=== PATIENT | female | born 1990 | race Caucasian/White ===

== ENCOUNTER 2018-07-12 11:34 | Outpatient (CLI) | payer SELFPAY ==
[2018-07-12 12:57] LABS: Iron 53 ug/dL (50-175); Total Iron Binding Capacity 297 ug/dL (250-450); Transferrin Sat 18 % (15-50)
[2018-07-12 13:00] LABS: ALT 30 U/L (12-78); AST 27 U/L (15-37); Albumin 3.8 g/dL (3.4-5.0); Alkaline Phosphatase 102 U/L (46-116); BUN 12 mg/dL (7-18); Bilirubin, Total 0.3 mg/dL (0.2-1.0); CREATININE 0.92 mg/dL (0.55-1.02); Chloride 102 mmol/L (98-107); Glucose 101 mg/dL (70-100); Sodium 138 mmol/L (136-145); Total Protein 7.7 g/dL (6.4-8.2)
== END 2018-07-12 11:54 ==
PROVIDERS: Internal Medicine; PCP Family Medicine
DX: E61.1 Iron deficiency (principal); R53.82 Chronic fatigue, unspecified; R63.8 Other symptoms and signs concerning food and fluid intake
CPT/HCPCS: 36415; 80053; 83540; 83550

== ENCOUNTER 2018-12-24 01:27 | Outpatient (CLI) | payer OTHER, SELFPAY ==
--- NOTE | 2018-12-30 17:22 | HOLTER_ITS ---
DATE OF DICTATION: December 30, 2018 STUDY INDICATION: Palpitations. REQUESTING PROVIDER: Not available. FINDINGS: The patient was monitored for 1 day and 22 hours. Average heart rate 91 bpm, range 65 to 160 bpm. No ectopy. Intermittent nocturnal first-degree AV block and 2:1 second-degree AVblock Mobitz Type 1. No higher degree AV block or critical pauses. No patient events. FINAL INTERPRETATION: No tachyarrhythmias. Intermittent nocturnal first-degree AV block and 2:1 second-degree AV block Mobitz Type 1, most likely due to increased vagal tone.
== END 2018-12-24 01:47 ==
DX: R00.2 Palpitations (principal); I44.0 Atrioventricular block, first degree; I44.1 Atrioventricular block, second degree
CPT/HCPCS: 93225

== ENCOUNTER 2018-12-26 12:35 | Outpatient (CLI) | payer OTHER, SELFPAY | END 2018-12-26 12:55 | DX: R00.2 Palpitations (principal); I44.0 Atrioventricular block, first degree; I44.1 Atrioventricular block, second degree | CPT/HCPCS: 93226 ==

== ENCOUNTER 2019-01-16 07:48 | Emergency (ER) | payer OTHER, SELFPAY ==
[2019-01-16 07:53] VITALS: BP 149/93; PULSE 16; RESP 96; TEMP 36.5; O2SAT 99
--- NOTE | 2019-01-16 08:04 | ED.GENADUL_ITS ---
Discharge Plan Disposition Patient Disposition: HOME Condition: Good Discharge Details Chief Complaint: Orthopedic Clinical Impression: Acute pain of left shoulder, Tingling Primary Care Provider: Jen Jiménez ED Provider: Miky Carrera Home Meds and New Rx's Prescriptions: No Action fluoxetine 40 mg capsule 40 mg PO QAM Qty: 90 RF: 3 Discharge Instructions Instructions: Paresthesia (ED), Shoulder Pain (ED) Additional Instructions: At this time your EKG shows no evidence of heart attack. You show no concerning evidence for a blood clot. And concern your symptoms may be secondary to a mild muscle strain, or spasm. This can sometimes lead to compression and irritation of the nerves. As we discussed he would like to hold off on any further work-up at this time. Throughout the day in the future if you have any return or worsening of your symptoms please return immediately for reassessment. You have any concerns at any time do not hesitate to contact us and speak with 1 of the physicians here in the ED. If you notice any worsening of your symptoms, or any new symptoms such as vomiting, diarrhea, fever, chills, shortness of breath, chest pain, numbness, weakness, or fainting , please return immediately to the emergency department for reevaluation. Please follow up with your primary care provider as soon as possible for reassessment and reevaluation. As always, it was a pleasure participating in your medical care today. Referrals: Jen Jiménez, RENAL DIALYSIS RN [Primary Care Provider] - Medical Decision Making This is a pleasant 28-year-old female with a past medical history of mild anxiety, GERD, who presents today for evaluation of mild left shoulder/scapular pain, and mild paresthesias in the left hand. Patient states that her pain began this morning when she woke up at 630. It is continued throughout the day. It is not exertional, not worsened by movement. No concerning red flags of chest pain shortness of breath pleuritic chest pain history of cardiac disease. His heart she denies any concerning red flags or risk factors for pulmonary embolism. She denies any personal cardiac disease, or first-degree relative with cardiac disease. She did have a Holter monitor recently which was notably unremarkable aside for slight abnormality occurring during sleep only. Physical exam is unremarkable, vital signs are normal and reassuring. Patient is PERC negative. Low risk with Wells score. Heart score is in lowest risk category. EKG is unremarkable. No focal neurologic deficits, normal two-point discrimination, no evidence of sensory deficit. Steeple sign is negative, no worsening of her symptoms with Olivier test. Normal strength. No evidence of focal neurologic deficit. Signs and symptoms appear clinically inconsistent with ACS, PE, dissection, stroke, or concerning life- threatening etiology. Had a long conversation with the patient regarding fur ther work-up with x-rays, blood tests, and observation, at this time weighing the risks and benefits, and discussing the potential for life-threatening etiologies as well as lifelong disability the patient would like to hold off on further work-up at this time. She states that she feels fine, and that her symptoms are notably improved from before. I discussed the importance of follow-up, as well as prompt return for any worsening of her symptoms. Additionally I made it clear that we are always available to talk here in the ED, or that she could come back at any moment for reassessment or completion of the work-up. Patient understands this. This time patient signs and symptoms appear clinically consistent with mild musculoskeletal strain causing her symptomatology. I have extensively reviewed the treatment plan and discharge instructions with the patient. I have addressed all patient concerns at this time. The patient was made aware of what symptoms to monitor for that would warrant a return to the emergency department. Discussed the plan with the patient, they demonstrate verbal understanding and agreement with our assessment and plan at this time. EKG 805 Rate 82, intervals normal, sinus rhythm, RSR in V1 V2, no significant ST elevations or depressions, no Q waves. No evidence of STEMI. No evidence of Brugada, WPW, or epsilon wave. FINAL INTERPRETATION: No tachyarrhythmias. Intermittent nocturnal first-degree AV block and 2:1 second-degree AV block Mobitz Type 1, most likely due to increased vagal tone. HPI General Date/Time Provider Initiated Documentation: 01/16/19 08:02 . HPI Narrative: This is a pleasant 28-year-old female with no significant past medical history who presents today for evaluation of mild achiness in her left shoulder and tingling in her left hand. She states that symptoms were present when she woke up at 630 this morning. They have continued throughout the day. Not worsened with exertion or activity. Not improved by anything except for time. She describes the pain as being present in the left shoulder blade itself, notably mild, aching in nature. No tearing sensation ripping sensation no chest pain, chest heaviness, pleuritic chest pain, bandlike sensation around the chest. She also does have some associated mild numbness-like sensation in her left arm from the forearm to the hand. It is present on the lateral aspect of the forearm and the palmar aspect of the hand including all fingers. She states that it is slowly improved throughout the morning and is much better now than before. She otherwise denies any aggravating or modifying factors. She denies any recent trauma or additional work or effort. She denies any cough, hemoptysis, change in medications. Denies PE risk factors such as recent long car rides, immobilization, recent surgery, prior history of DVT or PE, family history of PE or DVT, morbid obesity, exogenous estrogen and smoking, hemoptysis, history of cancer. She denies any first-degree family history of cardiac disease. Her grandfather did have a heart attack, but no first-degree relatives. Of note she did recently have an outpatient Holter monitor which was relatively benign, report included. No other complaints at this time. No other modifying factors. Related Data Home Medications Medication Instructions Recorded Confirmed fluoxetine 40 mg capsule 40 mg PO QAM #90 cap 12/17/18 01/16/19 Previous Rx's Medication Instructions Recorded fluoxetine 40 mg capsule 40 mg PO QAM #90 cap 12/17/18 Allergies Allergy/AdvReac Type Severity Reaction Status Date / Time bupropion HCl AdvReac Agitation Verified 01/16/19 07:58 [From Wellbutrin] General Stated Complaint: Orthopedic CLARISSA: 4 Review of Systems Review of Systems ROS Unobtainable: All systems reviewed & are unremarkable except as noted in HPI and below PFS Social History Smoking/Tobacco Use Status: Never Second Hand Exposure: No Alcohol Intake: current Alcohol Intake frequency: holidays/special occasions only Alcohol type: beer and wine Drug use: Never Substance use type: does not use Caregiver/Support person: No Household members: spouse and children Housing: house Communication Needs: None Do you need help understanding health information?: Never Pets and animals: Yes Pets and animals: cat(s) and dog(s) Sexually active: Yes Do you think of yourself as: straight/heterosexual Current gender identity: female What is your relationship status?: How often do you talk on the phone with friends or family?: never How often do you get together with friends or relatives?: never How often do you attend jewish or oriental orthodox services?: decline to answer Do you belong to any clubs or organized social groups?: no Panel score (0-1 are the most socially isolated patients): 1 What type of physical activity do you participate in: decline to answer Duration: decline to answer Frequency: decline to answer [place]/Zoroastrian: Quaker Special [place] needs: No Seatbelt use: always 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 3.ENT: Atraumatic external nose and ears. Moist MM. Neck: Symmetric, trachea midline, No thyromegaly. 4.CVS: +S1/S2, No murmurs or gallops. Peripheral pulses 2+ and equal in all extremities. Brisk capillary refill in all extremities. 5.RESP: Unlabored respiratory effort. Clear to auscultation bilaterally. No wheezes rales or rhonchi 6.GI: Soft, Nontender/Nondistended, No hepatosplenomegaly. No guarding or rebound. 7.MSK: Normocephalic/Atraumatic, Extremities w/o deformity or ttp No cyanosis or clubbing, Normal movement of all extremities. Movement of the left shoulder demonstrates mild subjective pain on the left scapula at the inferior component, not significantly worse with movement. No significant pain with internal or external rotation of the shoulder both actively and passively. Normal strength throughout. No calf tenderness. Left hand: Symmetrically palpable radial and ulnar pulses. Capillary refill less than 2 seconds to all digits. Intact sensation to light touch of the radial, median and ulnar nerves demonstrated by testing in the dorsal web space of the thumb, the distal palmar aspect of the index finger, and the lateral surface of the fifth finger. 2 point discrimination intact to 5mm (up to 6mm can be normal in digits 3-5) of discrimination in the affected digits. Intact motor function of the radial, median and ulnar nerves demonstrated by strength of extension of the isolated distal joint of the index finger, hand community marketing manager, and spreading of the 2nd through 5th digits. Intact recurrent median nerve as demonstrated by ability to move thumb fully through opposition, abduction and flexion. No snuffbox tenderness. 8.Skin: Warm, Dry. No rashes or lesions. 9.Neuro: clinical applications manager II-XII grossly intact. Sensation grossly intact, no focal neurologic deficits. All 6 cardinal planes of vision are fully intact. No evidence of rotatory or vertical nystagmus. The patient demonstrated a normal [id number]-[id number], good dexterity. There was no evidence of dysdiadochokinesia. Patient was able to ambulate without difficulty. There was no wide-based gait. Romberg, and [id number]-[id number] are both normal on testing. Sensation was intact bilaterally as well as muscle strength bilaterally for all extremities. Patient was able to verbalize butter cup with no slurring, or miss pronunciation. CN 2-12 tested and intact, patient is able to hold bilateral arms up for 5 seconds and there is no pronator drift, patient also holds legs up for 10 seconds bilaterally without any drop, sensation intact to light touch in hands and feet bilaterally. Cerebellar exam normal as tested by [id number], [id number], rapid alternating movements, fine finger movements. Visual downs intact peripherally. Normal speech pattern and verbal understanding. 10.Psych: (AAO) x3. Appropriate mood and affect Course Vital Signs Vital signs: Vital Signs Temperature 36.5 C 01/16/19 07:53 Pulse 16 L 01/16/19 07:53 Respiratory Rate 96 H 01/16/19 07:53 Blood Pressure 149/93 H 01/16/19 07:53 Pulse Oximetry 99 01/16/19 07:53 Temperature 36.5 C 01/16/19 07:53 Temperature Source Skin 01/16/19 07:53 Pulse 16 L 01/16/19 07:53 Respiratory Rate 96 H 01/16/19 07:53 Respiratory Effort Short of Breath 01/16/19 07:53 Blood Pressure 149/93 H 01/16/19 07:53 Blood Pressure Position Sitting 01/16/19 07:53 Pulse Oximetry 99 01/16/19 07:53 Oxygen Delivery Method Room Air 01/16/19 07:53 Oxygen Flow Rate 0 01/16/19 07:53 Pain Level 5 01/16/19 07:58
== END 2019-01-16 08:24 | disposition home or self-care (01) ==
PROVIDERS: Emergency Provider Student in an Organized Health Care Education/Training Program; PCP Nurse Practitioner
DX: M25.512 Pain in left shoulder (principal); R20.2 Paresthesia of skin; I44.1 Atrioventricular block, second degree; I44.0 Atrioventricular block, first degree; Z53.29 Procedure and treatment not carried out because of patient's decision for other reasons
CPT/HCPCS: 93005; 99283; 93010

== ENCOUNTER 2019-03-31 07:18 | Emergency (ER) | payer OTHER, SELFPAY | END 2019-03-31 07:34 | LOC: ER 08:13 | PROVIDERS: Emergency Provider Emergency Medicine | DX: J02.9 Acute pharyngitis, unspecified (principal) | CPT/HCPCS: 87880; 99282 ==

== ENCOUNTER 2019-10-16 18:32 | Emergency (ER) | payer OTHER, SELFPAY ==
[2019-10-16 18:37] VITALS: BP 133/80; PULSE 85; RESP 16; TEMP 36.7; O2SAT 99
--- NOTE | 2019-10-16 18:42 | W.ED.GENAD ---
Discharge Plan Disposition Patient Disposition: HOME Condition: Good Discharge Details Chief Complaint: Abd Prob Clinical Impression: UTI (urinary tract infection) Primary Care Provider: Unknown,Unknown ED Provider: Miky Carrera Home Meds and New Rx's Prescriptions: New cephalexin [Keflex] 500 mg capsule 500 mg PO Q12H 4 Days Qty: 8 RF: 0 Discharge Instructions Instructions: Urinary Tract Infection in Women (ED) Additional Instructions: You have a mild urinary tract infection. Please take antibiotic as directed. Please drink plenty of water, 10 to 12 cups/day, as well as cranberry juice or cranberry juice supplements. If you notice any worsening of your symptoms, or any new symptoms such as vomiting, diarrhea, fever, chills, shortness of breath, chest pain, numbness, weakness, or fainting , please return immediately to the emergency department for reevaluation. Please follow up with your primary care provider as soon as possible for reassessment and reevaluation. As always, it was a pleasure participating in your medical care today. Medical Decision Making 28-year-old female with a past medical history of GERD, elevated BMI, previous surgically mediated umbilical hernia presents today for evaluation of left flank pain. Patient states that starting this morning she has had mild achiness on her left flank/abdominal area. The area is in the upper flank region, she denies any pelvic pain or tenderness, she denies any vaginal discharge or urinary complaints. She denies any vomiting or diarrhea but does admit to mild nausea. She denies any hematuria, fever, chills, numbness tingling or weakness. She denies any other complaints at this time. No modifying factors. She has not taken any Tylenol or Motrin today. Patient's physical exam demonstrates no reproducible tenderness in the abdomen, no flank or CVA tenderness, no pain at McBurney's point, no pelvic tenderness whatsoever, negative obturator and psoas sign. Differential includes urinary tract infection, less likely kidney stone, notably less likely diverticulitis as her symptoms appearing consistent with this at this time. Pelvic pathology seems unlikely as the pain is in the higher left flank rather than the pelvic region. At this time we will get a urinalysis to evaluate for signs of infection as a cause of her symptoms, hold off on any additional labs or imaging otherwise with her notably unremarkable abdominal exam with no signs of an acute surgical abdomen whatsoever. Will give Toradol and Tylenol. 7:20 PM Patient's urinalysis has returned positive for leukocyte Estrace, and greater than 50 WBCs. No RBCs. No other abnormalities. Patient has complete resolution of her symptoms after Toradol and Tylenol. She is feeling much better. Signs and symptoms appear clinically consistent with urinary tract infection. I did again discuss options of repeat labs and imaging patient would like to hold off at this time. As her symptoms show no evidence of acute surgical abdomen patient will be discharged home, signs and symptoms at this time clinically consistent with urinary tract infection. Will give Keflex to go here, as well as prescription for home use 500 twice daily. I have extensively reviewed the treatment plan and discharge instructions with the patient. I have addressed all patient concerns at this time. The patient was made aware of what symptoms to monitor for that would warrant a return to the emergency department. Discussed the plan with the patient, they demonstrate verbal understanding and agreement with our assessment and plan at this time. HPI General Date/Time Provider Initiated Documentation: 10/16/19 18:33. HPI Narrative: 28-year-old female with a past medical history of GERD, elevated BMI, previous surgically mediated umbilical hernia presents today for evaluation of left flank pain. Patient states that starting this morning she has had mild achiness on her left flank/abdominal area. The area is in the upper flank region, she denies any pelvic pain or tenderness, she denies any vaginal discharge or urinary complaints. She denies any vomiting or diarrhea but does admit to mild nausea. She denies any hematuria, fever, chills, numbness tingling or weakness. She denies any other complaints at this time. No modifying factors. She has not taken any Tylenol or Motrin today. Related Data Home Medications Medication Instructions Recorded Confirmed cephalexin [Keflex] 500 mg PO Q12H 4 Days #8 cap 10/16/19 Previous Rx's Medication Instructions Recorded cephalexin [Keflex] 500 mg PO Q12H 4 Days #8 cap 10/16/19 Allergies Allergy/AdvReac Type Severity Reaction Status Date / Time bupropion HCl AdvReac Agitation Verified 10/16/19 18:45 [From Wellbutrin] General CLARISSA: 4 Review of Systems All systems reviewed & are unremarkable except as noted in HPI and below PFSH Medical History Abdominal pain generalized discomfort as pre-teen. Neg w/u. Onset 02/2013 RUQ after + UPT. 05/19/13 CMP and RUQ u/s pending. Anxiety (Chronic) Anxiety Chronic fatigue (Chronic) Depression (Acute 07/07/15) GERD (gastroesophageal reflux disease) (Chronic) Gestational diabetes (Resolved) Increased body mass index (BMI) (Chronic) Left hip pain (Resolved 11/01/16) Post-term , 40-42 weeks of gestation (Resolved) examination or test, positive result (Resolved 08/21/14) Supervision of other normal (Resolved 09/09/14) Umbilical hernia without obstruction and without gangrene (Resolved 06/29/17) Surgical History Endoscopy 11yo. Neg findings Repair of umbilical hernia (08/23/17) Family History Maternal Grandmother Lung cancer Thyroid cancer Stomach cancer Depression Heart disease Aunt No problems noted. Father Fatty liver Mother Depression Asthma Sister Depression Asthma Sister No problems noted. Son No problems noted. Daughter No problems noted. Paternal Grandfather Alcohol abuse Asthma Heart disease Stroke Paternal Grandfather Diabetes Heart disease Hyperlipidemia Hypertension Paternal Grandmother No problems noted. Social History Smoking/Tobacco Use Status: Never Second Hand Exposure: No Alcohol Intake: current Alcohol Intake frequency: holidays/special occasions only Alcohol type: beer and wine Drug use: Never Substance use type: does not use Caregiver/Support person: No Household members: spouse and children Housing: house Communication Needs: None Do you need help understanding health information?: Never Pets and animals: Yes Pets and animals: cat(s) and dog(s) Sexually active: Yes Do you think of yourself as: straight/heterosexual Current gender identity: female What is your relationship status?: How often do you talk on the phone with friends or family?: never How often do you get together with friends or relatives?: never How often do you attend latter-day or bahai services?: decline to answer Do you belong to any clubs or organized social groups?: no Panel score (0-1 are the most socially isolated patients): 1 What type of physical activity do you participate in: decline to answer Duration: decline to answer Frequency: decline to answer [place]/Shinto: Lutheran Special [place] needs: No Seatbelt use: always Drive intox or ride w/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 3.ENT: Atraumatic external nose and ears. Moist MM. Neck: Symmetric, trachea midline, No thyromegaly. 4.CVS: +S1/S2, No murmurs or gallops. Peripheral pulses 2+ and equal in all extremities. Brisk capillary refill in all extremities. 5.RESP: Unlabored respiratory effort. Clear to auscultation bilaterally. No wheezes rales or rhonchi 6.GI: Soft, Nontender/Nondistended, No hepatosplenomegaly. No guarding or rebound. No flank or CVA tenderness. Negative obturator and psoas sign. No pain at McBurney's point, negative Ayers sign. No left lower quadrant tenderness on palpation. No pelvic or suprapubic tenderness. 7.MSK: Normocephalic/Atraumatic, Extremities w/o deformity or ttp No cyanosis or clubbing, Normal movement of all extremities 8.Skin: Warm, Dry. No rashes or lesions. 9.Neuro: banquet cook II-XII grossly intact. Sensation grossly intact, no focal neurologic deficits. 10.Psych: (AAO) x3. Appropriate mood and affect
[2019-10-16] MEDS: Acetaminophen 500 MG TAB 1000 MG PO (18:56)
[2019-10-16] MEDS: Ketorolac 30 MG/ML VIAL IM (18:58)
[2019-10-16 19:04] LABS: Bilirubin Negative (Negative); Blood Negative (Negative); Clarity Cloudy (Clear); Glucose Negative (Negative); Ketones Negative (Negative); Leukocyte Esterase Trace (Negative); Nitrite Negative (Negative); Specific Gravity 1.025 (1.005-1.025); Urobilinogen 0.2 EU/dL (Up TO 0.2)
[2019-10-16] MEDS: Ondansetron O.D.T. 4 MG TABEF PO (19:07)
[2019-10-16 19:17] LABS: Bacteria Moderate HPF (Negative); C & S Indicated? No/Sq. Contamination; Casts Negative LPF (Negative); Crystals Negative HPF (Negative); Epithelial Cells Many HPF (Negative); Mucus Negative (Negative); WBC >50 HPF (0-5)
[2019-10-16] MEDS: Cephalexin 500 MG CAP, 4 CAPS/BTL PO (19:32)
== END 2019-10-16 19:30 | disposition home or self-care (01) ==
PROVIDERS: Emergency Provider Student in an Organized Health Care Education/Training Program; PCP Nurse Practitioner Family
DX: N39.0 Urinary tract infection, site not specified (principal); R11.0 Nausea
CPT/HCPCS: 81025; 96372; 99284; 81003; 81015; J1885

== ENCOUNTER 2020-08-17 17:14 | Outpatient (REF) | payer OTHER, SELFPAY ==
--- NOTE | 2020-08-17 16:15 | PAPFT_PTH ---
PATIENT: Alda Luther LOC: [facility] U#:[id number] AGE/SX: 29/F ROOM: RE08/17/[address]: Lucina Andrews : 1990 BED: DIS: 08/17/2020 SPEC #: [id number] RECD: 08/18/20 12:49 STATUS: DEJON REPablo #: [id number] ESTHER: 08/17/20 16:[address]: Lucina Andrews DEPT: [facility] Cytology RECD BY: Vero Leigh Tissues: 1 - CX/ENDOCX FOR PAP SMEARS Procedures: PAP THIN PREP/UVM Screening Comments: [id number] (CHLAMYDIA/GC)
[2020-08-19 15:09] LABS: Chlamydia Result Negative (Negative); GC Result Negative (Negative)
== END 2020-08-17 17:15 | disposition home or self-care (01) ==
LOC: NCHCN 17:14
PROVIDERS: PCP Nurse Practitioner Family; Visit Provider Nurse Practitioner Family
DX: Z11.3 Encounter for screening for infections with a predominantly sexual mode of transmission (principal); Z12.4 Encounter for screening for malignant neoplasm of cervix; Z00.00 Encounter for general adult medical examination without abnormal findings
CPT/HCPCS: 87491; 87591; 88142

== ENCOUNTER 2020-08-19 02:14 | Outpatient (CLI) | payer OTHER, SELFPAY ==
[2020-08-19 12:56] LABS: TSH (W/Ref FT4) 1.51 uIU/mL (0.36-3.74)
== END 2020-08-19 02:15 | disposition home or self-care (01) ==
LOC: LBO 02:14
PROVIDERS: PCP Nurse Practitioner Family; Visit Provider Nurse Practitioner Family
DX: E66.9 Obesity, unspecified (principal)
CPT/HCPCS: 36415; 84443

== ENCOUNTER 2020-09-06 03:36 | Outpatient (RCR) | payer OTHER, SELFPAY ==
--- NOTE | 2020-09-06 08:15 | HOLTER_ITS ---
APPROVED REPORT Conclusion This is a 24-hour monitor ordered for indication of arrhythmias. The patient was in normal sinus rhythm with majority recording with an average heart of 66 bpm. There were 7 total PVCs. There was no other significant ectopy or arrhythmia There is no evidence of atrial fibrillation no pauses grade 3 seconds and no evidence of high degree heart block. There were no patient triggered events.
== END 2020-09-20 23:59 | disposition home or self-care (01) ==
LOC: RT 03:36
PROVIDERS: PCP Nurse Practitioner Family; Visit Provider Nurse Practitioner Family
DX: I49.8 Other specified cardiac arrhythmias (principal); I49.3 Ventricular premature depolarization
CPT/HCPCS: 93225; 93226

== ENCOUNTER 2021-08-15 04:40 | Outpatient (CLI) | payer OTHER, SELFPAY ==
[2021-08-15 11:26] LABS: Source Nasal/Nares
[2021-08-15 14:49] LABS: HCT 38.4 % (36.0-46.0); HGB 12.1 g/dL (11.2-15.7); MCH 27.9 pg (27.0-33.0); MCHC 31.5 % (32.0-36.0); MCV 88.5 fL (80-95); MPV 9.1 fL (8.0-11.0); Platelet Count 360 10^3/uL (130-400); RBC 4.34 10^6/uL (3.93-5.22); RDW 12.7 % (11.7-14.6); RDW-SD 41.3 fL; WBC 11.33 10^3/uL (4.4-10.8)
[2021-08-15 15:52] LABS: HCG Qual (Serum) Negative
[2021-08-15 15:59] LABS: BUN 13 mg/dL (7-18); CREATININE 0.9 mg/dL (0.55-1.02); Calcium 8.4 mg/dL (8.5-10.1); Chloride 103 mmol/L (98-107); Glucose 109 mg/dL (74-106); Potassium 4.2 mmol/L (3.5-5.1); Sodium 136 mmol/L (136-145)
[2021-08-15 16:42] LABS: COVID-19 PCR Negative (Negative)
== END 2021-08-15 04:41 | disposition home or self-care (01) ==
LOC: LBO 04:41
PROVIDERS: PCP Nurse Practitioner Family; Visit Provider Obstetrics & Gynecology Gynecology
DX: N94.6 Dysmenorrhea, unspecified; N92.0 Excessive and frequent menstruation with regular cycle; Z20.822 Contact with and (suspected) exposure to COVID-19; Z01.818 Encounter for other preprocedural examination; Z01.812 Encounter for preprocedural laboratory examination
CPT/HCPCS: 36415; 80048; 85027; 86850; 86900; 86901; 87635; 84703

== ENCOUNTER 2021-08-15 05:10 | Outpatient (CLI) | payer OTHER, SELFPAY | END 2021-08-15 05:11 | disposition home or self-care (01) | LOC: LBO 05:10 | PROVIDERS: PCP Nurse Practitioner Family; Visit Provider Obstetrics & Gynecology Gynecology ==

== ENCOUNTER 2021-08-15 09:01 | Outpatient (CLI) | payer OTHER, SELFPAY | END 2021-08-15 09:02 | disposition home or self-care (01) | LOC: LBO 09:02 | PROVIDERS: PCP Nurse Practitioner Family; Visit Provider Obstetrics & Gynecology Gynecology ==

== ENCOUNTER 2021-08-18 16:13 | Observation (INO) | payer OTHER, SELFPAY ==
[2021-08-18] VITALS (8 sets, daily range): BP systolic 98–160; BP diastolic 52–90; PULSE 59–79; RESP 13–18; TEMP 36.4–36.7; O2SAT 96–100; BMI 41.1
[2021-08-18] MEDS: Lactated Ringers 1,000 ML 125 ML IV ×4 (09:11→22:49)
--- NOTE | 2021-08-18 10:00 | W.ANESPRE ---
General Info Date of Service Date Performed: 08/18/21 Height: 5 ft 5 in Weight: 112.264 kg Body Mass Index (BMI): 41.1 Surgical Procedure: Operation Date: 08/18/21 11:10 Proposed Procedure Side Surgeon p Hysterectomy Vaginal Laparoscopic Assist, Bladder Cystoscopy Rubina Lamb MD Meds Allergies and Home Medications Allergies Allergy/AdvReac Type Severity Reaction Status Date / Time shellfish derived Allergy rash Unverified 08/18/21 08:52 bupropion HCl AdvReac Agitation Verified 08/18/21 08:52 [From Wellbutrin] Home Medication Medication Instructions Recorded sertraline 25 mg tablet 50 mg PO DAILY tab 08/15/21 omeprazole magnesium 20 mg 20 mg PO DAILY 08/17/21 tablet,delayed release (Prilosec OTC) Current Visit Medications: Current Medications Generic Name Dose Route Start Last Admin Trade Name Freq PRN Reason Stop Dose Admin Ringer's Solution 1,000 mls @ 125 mls/hr 08/18/21 06:00 08/18/21 09:11 IV 09/16/21 23:59 125 mls/hr INFUSION MARCUS Administration Cefazolin Sodium/Dextrose 2 gm in 50 mls @ 100 mls/hr 08/18/21 06:00 Ancef Duplex IVPB 08/18/21 16:00 PREOP MARCUS IV Miscellaneous Supplies 1 each 08/18/21 06:00 Iv Access IV 09/16/21 23:59 DIRECTED MARCUS Sodium Chloride 0 ml 08/18/21 06:00 Normal Saline Flush 10 Ml Syr IV 09/16/21 23:59 PRN PRN Sodium Chloride 0 ml 08/18/21 06:00 Normal Saline 10 Ml Vial IJ 09/16/21 23:59 DIRECTED PRN Sterile Water 0 ml 08/18/21 06:00 Water,Injection,Sterile 10 Ml Vial IJ 09/16/21 23:59 DIRECTED PRN PFSH Active Problems Active Problems: Problem Status Onset Code Preop examination Z01.818 Encounter for IUD removal Z30.432 Encounter for counseling regarding contraception Z30.09 IUD check up Z30.431 Encounter for IUD insertion Z30.430 Dysmenorrhea N94.6 Menorrhagia with regular cycle N92.0 Irregular heart beat I49.9 Abdominal pain 05/27/12 R10.9 History of endoscopy Z98.890 Umbilical hernia without obstruction and without gangrene 06/29/17 K42.9 Increased body mass index (BMI) R63.8 GERD (gastroesophageal reflux disease) K21.9 Chronic fatigue R53.82 Left hip pain 11/01/16 M25.552 Depression 07/07/15 F32.9 Anxiety F41.9 Medical History Medical History Abdominal pain generalized discomfort as pre-teen. Neg w/u. Onset 02/2013 RUQ after + UPT. 05/19/13 CMP and RUQ u/s pending. Anxiety Surgical History Surgical History Endoscopy 11yo. Neg findings Repair of umbilical hernia (08/23/17) Tobacco Smoking/Tobacco Use Status: Never Second hand exposure: No Alcohol Alcohol Intake: current Alcohol intake frequency: holidays/special occasions only Alcohol type: beer and wine Substance Use Substance use: Never Substance use type: does not use Prental History History 2 Para 2 Hx # Term Pregnancies 2 Multiple births Hx # Pregnancies Ectopic pregnancies AB induced Hx Number of Living Children 2 AB spontaneous Vital Signs and Lab Results Vital Signs Most Recent Vital Signs in EMR: Most Recent Vital Signs Temp Pulse Resp BP Pulse Ox 36.7 C 78 16 160/90 H 100 08/18/21 08:48 08/18/21 08:48 08/18/21 08:48 08/18/21 08:48 08/18/21 08:48 Point of Care Results Point of Care Results: POC- Test(urine) Negative 08/18/21 09:18 Lab Results Blood Type / Crossmatch: Patient ABO/Rh O Negative 08/15/21 Antibody Screen NEGATIVE 08/15/21 Complete Blood Count: White Blood Count 11.33 10^3/uL (4.4-10.8) H 08/15/21 14:30 08/15/21 Red Blood Count 4.34 10^6/uL (3.93-5.22) 08/15/21 14:30 08/15/21 Hemoglobin 12.1 g/dL (11.2-15.7) 08/15/21 14:30 08/15/21 Hematocrit 38.4 % (36.0-46.0) 08/15/21 14:30 08/15/21 Platelet Count 360 10^3/uL (130-400) 08/15/21 14:30 08/15/21 Complete Metabolic Panel: Sodium Level 136 mmol/L (136-145) 08/15/21 14:30 08/15/21 Potassium Level 4.2 mmol/L (3.5-5.1) 08/15/21 14:30 08/15/21 Chloride Level 103 mmol/L (98-107) 08/15/21 14:30 08/15/21 Carbon Dioxide Level 24.0 mmol/L (21.0-32.0) 08/15/21 14:30 08/15/21 Blood Urea Nitrogen 13 mg/dL (7-18) 08/15/21 14:30 08/15/21 Creatinine 0.9 mg/dL (0.55-1.02) 08/15/21 14:30 08/15/21 Estimated GFR/1.73 m2 >= 60.00 (mL/min/1.73m2) 08/15/21 14:30 08/15/21 Calcium Level 8.4 mg/dL (8.5-10.1) L 08/15/21 14:30 08/15/21 Glucose Level 109 mg/dL (74-106) H 08/15/21 14:30 08/15/21 Liver Function Panel: No Data to Display Coagulation Panel: No Data to Display Cardiac Panel: No Data to Display Arterial Blood Gas: No Data to Display Venous Blood Gas: No Data to Display Pancreas Panel: No Data to Display Thyroid Panel: No Data to Display Infectious Disease: Coronavirus (COVID-19)(PCR) Negative (Negative) 08/15/21 09:00 08/15/21 Coronavirus 2019 Source Nasal/Nares 08/15/21 09:00 08/15/21 Blood Cultures: No Data to Display Toxicology Panel: No Data to Display Panel: Serum HCG, Qualitative Negative 08/15/21 14:30 08/15/21 Anesthesia Assessment and Plan Anesthesia History Personal History: No History of Anesthesia Complications Family History: No Family History of Anesthesia Complications Exercise Tolerance Exercise Tolerance: Metabolic Equivalents>4 Pertinent Negatives Pertinent Negatives: No Symptoms of GERD Cardiac & Pulmonary Exam Cardiac Exam: Normal S1/S2 Heart Sounds Pulmonary Exam: Clear Bilateral Breath Sounds Implantable Cardiac Device Does patient have a Pacemaker or an ICD?: No Airway Exam Known Difficult Airway: No Mallampati Class: 2 Mouth Opening: Normal (> 3cm) Thyromental Distance: Greater than 3 cm Neck Range of Motion: Full ROM Neck Circumference: Normal Teeth Condition: Normal Dentition ASA Classification ASA Score: ASA 3 Emergency Case?: No NPO Status NPO Status: NPO Clears >2 hours, Solids >8 hours Status Status: Negative HCG Anesthesia Plan Resuscitation Status: Full Code Anesthesia Technique: General Anesthesia Airway Planned: Endotracheal Tube Pain Management: Intrathecal Analgesia Monitors Used: Standard Monitors
[2021-08-18] MEDS: ceFAZolin 2 GM/50 ML BAG IVPB (11:10)
[2021-08-18] MEDS: Bupivacaine 0.25% Pres-Free 30 ML VIAL (11:53)
--- NOTE | 2021-08-18 13:48 | UTER_PTH ---
PATIENT: Alda Luther LOC: U#:[id number] AGE/SX: 30/F ROOM: RE08/18/[address]: Rubina Lamb : 1990 BED: A DIS: 08/19/2021 SPEC #: [id number] RECD: 08/18/21 17:08 STATUS: DEJON RE #: [id number] ESTHER: 08/18/21 13:[address]: Rubina Lamb DEPT: Surgical Specimen RECD BY: Vero Leigh ENTERED: 08/18/21 17:09 SP TYPE: UTER OTHR DR: Lucina Andrews Tissues: 1 - UTERUS W OR W/O OVARIES(NOT TUMOR/PROLAPSE) Procedures: GROSS AND MICRO LEVEL 5 Comments: [id number]
[2021-08-18] MEDS: Lidocaine 1% Multi-Dose W/EPI 1/100,000 50 ML VIAL (14:38)
[2021-08-18] MEDS: Cellulose,Oxidized 4X8 1 PACKET MC (15:27)
--- NOTE | 2021-08-18 16:30 | ROE_ITS ---
Date of service: 08/18/21 Time of Service: 17:11 Operative Note Operative Note DATE OF PROCEDURE: 08/18/21 PRE-OP DIAGNOSIS: Dysmenorrhea, pelvic pain PROCEDURE: Laparoscopic-assisted vaginal hysterectomy with bilateral salpingectomy and bladder cystoscopy SURGEON: Rubina Lamb ASSISTING SURGEON: Sindy Kwan Refer to Anesthesia Record ESTIMATED BLOOD LOSS: 500 PATHOLOGY: other (Uterus cervix bilateral fallopian tubes to pathology) COMPLICATIONS: None Patient was transported to: PACU Patient's condition: stable Indications: Patient is a 30-year-old female? with a history of abnormal uterine bleeding and pelvic pain not responsive to Levonorgestrel IUD or NSAIDs.Previous imaging studies of pelvis were unremarkable Pt decided against OCPs and requested definitive Rx Findings: Uterus small, mobile. L fallopian tube with paratubal cyst. R and L ovaries nl. Normal upper abdomen. Procedure Description: Patient was taken to the operating room where she was placed in sitting position and spinal anesthesia administered without difficulty. She was then placed in the dorsal supine position and general endotracheal anesthesia was administered. She was then placed in the dorsal lithotomy position in [facility] stirrups with SCDs in place. After being prepped and draped in the usual sterile fashion a surgical timeout was performed. Elizabeth catheter was placed to gravity drainage. A bivalve speculum was placed in the vagina the anterior lip of the cervix was grasped with a single-tooth tenaculum. A uterine manipulator was successfully inserted into the uterine cavity, the catheter bulb inflated with normal saline and the device left in place. Attention was then turned to the patient's abdomen. She received 2 g of Ancef on arrival in the OR. The umbilical fold was infiltrated with quarter percent Marcaine without epinephrine. A scalpel was then used to make a 12mm vertical skin incision in the umbilical fold. Two penetrating towel clips were used to tent up the skin and through the periumbilical incision and a Veres needle was introduced into the abdomen with carbon dioxide as the distention medium. Intra-abdominal placement was confirmed by a drop in the intra-abdominal pressure. Once a pneumoperitoneum was established placement of a 12 mm Visiport was attemped under direct visualization. However her pannus prevented entry in to abdomen. Instead the subcutaneous tissue was dissected to the level of the rectus fascia which was then grasped with two Kocker clamps, tented up and incised with a Cage scissors with entry into the abdominal cavity. The 12mm trochar and sleeve were then placed without difficulty. The rectus fascia was taged with 2 sutures of 0- Vicryl. Patient was then placed in Trendelenburg position. Two sites approximately 6 cm diagonally from the umbilical incision the skin were infiltrated with 1cc of 0.25% Marcaine without epinephrine, incised with a scalpel and two 5 mm lower ports were placed under direct visualization. Inspection of the right and left pelvic side wall did not demonstrate the course ureters in relation to the right and left adnexa. After careful inspection of the pelvis a LigaSure electrocautery device was used to clamp, cauterize and transect the left mesosalpinx to the left uterine cornua. Left ovarian ligament was then clamped, cauterized and transected from its attachment to the body of the uterus. The left round ligament and broad ligament were then clamped, cauterized and transected to the level of the lower uterine segment. The vesico-uterine peritoneum was incised and the the from the lower uterine segment and mobilized off of the body of the cervix. The pedicles of the suspensory, round and broad ligaments were inspected and noted to be hemostatic. On the contralateral side the right mesosalpinx, ovarian ligament, round, and right broad ligament were sequentially clamped, cauterized and transected using the Ligasure device to the level of the insertion of the uterine artery. The remaining the vesicouterine peritoneum was incised across the lower uterine segment and the bladder flap created using the Ligasure device and gently counter traction. All pedicles were inspected and noted to be hemostatic. Decision was made to proceed with the vaginal portion of the case. Laparoscopic instruments were removed from the ports , the pneumoperitoneum was reduced, and the was abdomen covered with sterile drape. A weighted vaginal speculum was placed in the vagina and the body of the cervix was infiltrated with 1% Lidocaine with a dilute solution of Epinephrine in a circumferential fashion. The anterior and posterior lips of the cervix were grasped with Maico clamps. A circumferential incision of the cervical epithelium was made with a Bovie electrocautery. The posterior cul-de-sac was entered sharply and through the this incision a long billed weighted speculum was placed. The left and right uterosacral ligament complexes were identified clamped, transected and suture- ligated and the suture held long. The vesico-cervical fascia was identified and the anterior cul-de-sac bluntly sharply. Through this incision a curved right angled retractor was inserted and used to retract the bladder away from the operative field. The remaining right and left broad ligament attatchments were sequentially clamped, cauterized, and transected and the specimen was passed off of the operative field. The vaginal cuff was inspected and there was bleeding from the left broad ligament pedicle. It was clamped and suture ligated with hemostasis achieved. The vaginal cuff was reapproximated in a vertical fashion with an interupted napoles ture of 0 Vicryl. Instruments removed from the vagina and attention was again turned to the abdomen where a pneumoperitoneum was reestablished and the pelvis inspected using the laparoscope. The vaginal cuff was intact. Bleeding was noted from the left side of the vaginal cuff. Two small branches of the left uterine vasculature were located and noted to be bleeding. Hemostasis was acheived using 5mm vascular clips and electrocauter. Once the area was determined to be hemostatic Surgicel was draped over the vaginal cuff and left uterine vessel pedicles. The instruments were removed from the port sites, the pneumoperitoneum reduced and the ports removed under direct visualization. The fascia of the periumbilical skin incision was closed with interrupted suture of 0 Vicryl. The skin of all port site incisions were reapproximated with a subcuticular closure of 3-0 Monocryl and and covered with skin glue. At the 4 hour interval in the case the 2gms of Ancef was redosed. A cystoscopy was performed with both ureteral jets patent with a brisk eflux of methylene blueburine. The bladder was inspected and no evidence of sutures were present. Elizabeht catheter was reinserted to gravity drainage and the patient was placed in the dorsal supine position, awakened, extubated, and transported recovery area in stable condition. All sponge lap needle counts correct x2.
--- NOTE | 2021-08-18 16:46 | W.ANESPOSTOP ---
Postoperative Evaluation Date, Time and Location Date Performed: 08/18/21 Time Performed: 16:46 Patient Location: PACU Vital Signs Most Recent Imported Vital Signs: Most Recent Vital Signs Temp Pulse Resp BP Pulse Ox 36.4 C L 60 14 104/56 L 100 08/18/21 16:37 08/18/21 16:37 08/18/21 16:37 08/18/21 16:37 08/18/21 16:37 Pain Score Most Recent Pain Score: Most Recent Pain Score Pain Level 0 08/18/21 16:37 Assessment Mental Status: Awake (Alert & Oriented to Patient Baseline) Airway and Respiratory Function: Patent airway with normal (patient baseline) respiratory exam Cardiovascular Function: Hemodynamically Stable Hydration Status: Adequately Hydrated Nausea & Vomiting: No Nausea or Vomiting Pain: Pt. Denies Any Pain Peripheral Nerve Block: Regional nerve block not resolved at time of post operative discharge
[2021-08-18] MEDS: Ketorolac 30 MG/ML VIAL IVP ×2 (17:48→23:47)
[2021-08-18] MEDS: Docusate Sodium 100 MG CAP PO (22:49)
[2021-08-18] MEDS: Normal Saline Flush 10 ML SYR IV ×2 (22:49→23:47)
[2021-08-19 02:53] VITALS: BP 115/70; PULSE 72; RESP 18; TEMP 36.3; O2SAT 98
[2021-08-19] MEDS: Ketorolac 30 MG/ML VIAL IVP (06:22)
[2021-08-19] MEDS: Normal Saline Flush 10 ML SYR IV (06:22)
[2021-08-19 06:52] LABS: HCT 30.7 % (36.0-46.0); HGB 9.9 g/dL (11.2-15.7); MCHC 32.2 % (32.0-36.0); MCV 87 fL (80-95); MPV 9.3 fL (8.0-11.0); Platelet Count 325 10^3/uL (130-400); RBC 3.54 10^6/uL (3.93-5.22); RDW 12.8 % (11.7-14.6); RDW-SD 40.6 fL; WBC 15.07 10^3/uL (4.4-10.8)
[2021-08-19] MEDS: Omeprazole 20 MG CAPCR PO (07:44)
[2021-08-19] MEDS: Sertraline 50 MG TAB PO (07:44)
[2021-08-19] MEDS: Docusate Sodium 100 MG CAP PO (07:44)
[2021-08-19 08:50] VITALS: BP 96/64; PULSE 95; RESP 14; TEMP 37.2; O2SAT 98
--- NOTE | 2021-08-19 08:54 | W.PM.DS.N ---
Date of service: 08/19/21 Time of Service: 08:54 Discharge Plan Disposition Patient Disposition: HOME Condition: Good Discharge Details Reason For Visit: LAPAROSCOPIC ASSISTED VAGINAL HYSTEREXTOMY Admit Date/Time: 08/18/21 16:13 Admit Provider: Rubina Lamb Attending Provider: Rubina Lamb Primary Care Provider: Lucina Andrews Hospital Course Hospital Course: Pt was admitted the morning of surgery and underwent a LAVH with bilateral salpingectomy and bladder cystoscopy. Surgery was uncomplicated. She was discharged to home on POD 1 successfully voiding and tolerating a regular diet. Pain controlled with NSAIDs while hospitalized. She was given a prescription for Percocet and Ibuprofen to take while at home as needed. Home Meds and New Rx's Prescriptions: No Action sertraline 25 mg tablet 50 mg PO DAILY 0RF omeprazole magnesium [Prilosec OTC] 20 mg Tablet,Delayed Release (Dr/Ec) 20 mg PO DAILY 0RF Discharge Instructions Additional Instructions: Keep your follow up appointment with Dr. Lamb in 2 weeks. If one has not been scheduled then please call the office and make a postop appointment. You have skin glue covering your incisions. You may shower at anytime. No baths, nothing in the vagina including tampons until you have been seen for your two week post op appointment. Stand Alone Forms: [employer] SurgeryW/Incision, Nursing Discharge Form Activity:: Activity as Tolerated Equipment/Supplies:: No Equipment Needed Diet:: As Tolerated Discharge Orders Discharge Orders: Discharge Order (Routine); Ordered 08/19/21 Ordered By: Rubina Lamb DS: Summary Time Spent with Patient providing and/or coordinating discharge services: Less than 30 minutes Status at Discharge Functional status at discharge: independent ambulation Overall status at discharge: patient is progressing back to baseline Mental Status: mental status grossly normal Speech and Movement: speech and movement normal Mood: congruent mood Affect: normal affect Exam Const General: cooperative and no acute distress Nutritional Appearance: obese Orientation: alert, awake and oriented x3 Resp Effort & Inspection: normal respiratory effort Auscultation: clear to auscultation bilaterally Cardio Rate: regular rate Rhythm: regular rhythm GI Inspection: normal to inspection, no abdominal wall ecchymosis and incision (Low approximated skin glue in place) Palpation: soft, no hepatosplenomegaly, no masses and nontender Auscultation: normal bowel sounds General: deferred Skin General skin exam: no rashes or lesions noted Extrem General: normal to inspection, full ROM and no pedal edema Psych Appearance: grossly normal Mental Status: mental status grossly normal Speech and Movement: speech and movement normal Mood: congruent mood Affect: normal affect DS: Data Vitals/I&O Vitals and I&O: Vital Signs Temperature 99.0 F 08/19/21 08:50 Temperature Source Tympanic 08/19/21 08:50 Pulse 95 H 08/19/21 08:50 Pulse Rhythm Regular 08/19/21 02:56 Respiratory Rate 14 08/19/21 08:50 Respiratory Effort Non-Labored 08/19/21 02:56 Respiratory Depth Normal 08/19/21 02:56 Respiratory Pattern Normal 08/19/21 02:56 Blood Pressure 96/64 L 08/19/21 08:50 Pulse Oximetry 98 08/19/21 08:50 Respiratory End-tidal CO2 36 08/18/21 16:37 Oxygen Delivery Method Room Air 08/19/21 08:50 Oxygen Flow Rate 0 08/19/21 08:50 Pain Level 0 08/19/21 08:50 Comment 08/19/21 02:53 Intake & Output 08/18/21 08/18/21 08/19/21 11:59 23:59 11:59 Intake Total 50 / 3050 3000 / 3050 981.25 / 981.25 Output Total 950 / 950 800 / 800 Balance 50 / 2100 2049 / 2100 181.25 / 181.25 Weight 247 lb 7.996 oz Intake: IV 50 / 3050 3000 / 3050 981.25 / 981.25 Output: Urine 450 / 450 800 / 800 Estimated Blood Loss 500 / 500 Other: Urine Color Green Urine Appearance Clear Clear Comment blue/green urine due to contrast for kidneys Elizabeth catheter dc'd at 0630 Emesis Description None Voiding Methods Indwelling Catheter Data Completed and Pending Labs on day of discharge: Labs from last 24 hours 08/19/21 06:45 WBC 15.07 H RBC 3.54 L Hgb 9.9 L Hct 30.7 L MCV 87 MCH 28.0 MCHC 32.2 RDW 12.8 Plt Count 325 MPV 9.3 PFSH All Active Problems (Updated 08/19/21 @ 08:59 by Rubina Lamb MD) History of laparoscopic-assisted vaginal hysterectomy (Acute) 08/18/21. with bilateral salpingectomy to treat dysmenorrhea and chronic pelvic pain not responsive to medical therapy Irregular heart beat (Acute) Abdominal pain (Acute 05/27/12) History of endoscopy (Acute) Umbilical hernia without obstruction and without gangrene (Acute 06/29/17) Increased body mass index (BMI) (Chronic) GERD (gastroesophageal reflux disease) (Chronic) Chronic fatigue (Chronic) Depression (Acute 07/07/15) Anxiety (Chronic) Medical History (Updated 08/19/21 @ 08:59 by Rubina Lamb MD) Abdominal pain generalized discomfort as pre-teen. Neg w/u. Onset 02/2013 RUQ after + UPT. 05/19/13 CMP and RUQ u/s pending. Anxiety Dysmenorrhea since of last child 2014. Kyleena IUD inserted 03/14/21 Surgical History (Updated 08/19/21 @ 08:59 by Rubina Lamb MD) Endoscopy 11yo. Neg findings Repair of umbilical hernia (08/23/17) Family History Maternal Grandmother Lung cancer Thyroid cancer Stomach cancer Depression Heart disease Multiple sclerosis Endometriosis Aunt No problems noted. Father Fatty liver Mother Depression Asthma Endometriosis Sister Depression Asthma Multiple sclerosis Sister Endometriosis Son No problems noted. Daughter No problems noted. Paternal Grandfather Alcohol abuse Asthma Heart disease Stroke Paternal Grandfather Diabetes Heart disease Hyperlipidemia Hypertension Paternal Grandmother Cancer [employer] in nature, required hysterectomy no chemo or radiation Social History Smoking/Tobacco Use Status: Never Second Hand Exposure: No Smoking risk assessment performed?: Yes Alcohol Intake: current Alcohol Intake frequency: holidays/special occasions only Alcohol type: beer and wine Drug use: Never Substance use type: does not use Caregiver/Support person: No Household members: spouse and children Housing: house Communication Needs: None Do you need help understanding health information?: Never Pets and animals: Yes Pets and animals: cat(s) and dog(s) Sexually active: Yes Do you think of yourself as: straight/heterosexual Current gender identity: female What is your relationship status?: How often do you talk on the phone with friends or family?: never How often do you get together with friends or relatives?: never How often do you attend rastafarian or church services?: decline to answer Do you belong to any clubs or organized social groups?: no Panel score (0-1 are the most socially isolated patients): 1 What type of physical activity do you participate in: decline to answer Duration: decline to answer Frequency: decline to answer [place]/Episcopalian: Tenriism Special [place] needs: No Seatbelt use: always Drive intox or ride w/intox route delivery driver: No Do you feel safe at home: Yes Do you feel safe in your relationship?: Yes Female Reproductive History Menstrual control method: other History History 2 Para 2 Hx # Term Pregnancies 2 Multiple births Hx # Pregnancies Ectopic pregnancies AB induced Hx Number of Living Children 2 AB spontaneous
== END 2021-08-19 10:19 | disposition home or self-care (01) ==
LOC: MS 16:49
PROVIDERS: Admitting Provider Obstetrics & Gynecology Gynecology; PCP Nurse Practitioner Family; Visit Provider Obstetrics & Gynecology Gynecology
PROC: 0UT9FZZ Resection of Uterus, Via Natural or Artificial Opening With Percutaneous Endoscopic Assistance (ICD-10-PCS; CPT 58552; principal; 2021-08-18 11:00)
DX: N83.01 Follicular cyst of right ovary (principal); R10.2 Pelvic and perineal pain; N94.6 Dysmenorrhea, unspecified; K21.9 Gastro-esophageal reflux disease without esophagitis; F41.9 Anxiety disorder, unspecified; F32.A Depression, unspecified; R53.82 Chronic fatigue, unspecified; I49.9 Cardiac arrhythmia, unspecified; N85.00 Endometrial hyperplasia, unspecified; N83.02 Follicular cyst of left ovary
CPT/HCPCS: 58552; 36415; 85027; 88307; G0378; J0690; J1100; J1885; J2250; J2405; J2704; J3010

== ENCOUNTER → 2022-02-20 02:12 | Outpatient (CLI) | payer OTHER, SELFPAY ==
--- NOTE | 2022-02-20 07:00 | DI.CT_ITS ---
Exam(s) CT ABDOMEN PELVIS W EXAM: CT ABDOMEN PELVIS W CLINICAL HISTORY: hx of umbilical hernia repair followed by JONI,umbilical pain, r10.33,. TECHNIQUE: Imaging Protocol: Axial computed tomography images with coronal and sagittal reformatted images were created and reviewed CONTRAST MATERIAL: Intravenous: Omnipaque 350 Contrast volume:100 ml Oral: yes COMPARISON: CT ABD PELVIS WITH CONTRAST from 07/20/2017 FINDINGS: ABDOMEN: Lung Bases: Normal where visualized. Liver: Normal density. No measurable mass. Gallbladder and biliary tract: No radiodense calculus or dilation. Pancreas: Normal density, no abnormal calcifications or inflammatory process. Spleen: Normal. Kidneys: Normal size, contour and axis. No radiodense stones or obstructive uropathy. No masses seen. Adrenal glands: No masses seen. Abdominal Aorta: Abdominal portion non-dilated. Soft tissues: Scarring at the umbilicus related to prior hernia repair. No evidence of recurrence of hernia. No additional abdominal wall or inguinal hernias. PELVIS: Bladder: No gross wall thickening. No calculi.No focal mass. Bowel: No obstruction or bowel wall thickening. Appendix normal. Peritoneal cavity: No ascites, collection or mesenteric inflammatory response. Bones: Within normal limits for age. Reproductive organs: Status post hysterectomy. 3.2 centimeter right ovarian cyst. Lymph nodes: Unremarkable. Impression: Scarring at the umbilicus related to prior hernia repair. No evidence of recurrent hernia. RADIATION DOSE DELIVERED: Total DLP DATA REPOSITORY: All CT scans at this facility are submitted to the National Radiology Data Registry (NRDR) Dose Index Registry (DIR) with the [employer] (ACR). RADIATION OPTIMIZATION: All CT scans at this facility use at least one of these dose optimization te chniques: automated exposure control; mA and/or kV adjustment per patient size (includes targeted exa ms where dose is matched to clinical indication); or iterative reconstruction.
[2022-02-20] MEDS: Barium Sulfate 2% W/V-Berry Smoothie 450 ML BTL PO ×2 (09:00→09:01)
[2022-02-20] MEDS: Omnipaque 350 MG/ML 500 ML BTL-Imaging package IJ (10:56)
[2022-02-20] MEDS: Normal Saline - Diluent 50 ML VIAL IJ (10:58)
[2022-02-20] MEDS: Normal Saline Flush 10 ML SYR IVP (10:58)
== END ==
PROVIDERS: PCP Nurse Practitioner Family; Visit Provider Obstetrics & Gynecology Gynecology
DX: R10.33 Periumbilical pain (principal); Z90.710 Acquired absence of both cervix and uterus; Z98.890 Other specified postprocedural states; N83.291 Other ovarian cyst, right side
CPT/HCPCS: 74177

== ENCOUNTER → 2023-06-04 01:56 | Outpatient (CLI) | payer OTHER, SELFPAY ==
--- NOTE | 2023-06-04 | DI.MAMMO_ITS ---
Exam(s) US BREAST RT LIMITED MG MAMMO DIAGNOSTIC BI EXAM: MG MAMMO DIAGNOSTIC BI CLINICAL HISTORY: MASS RT BREAST, DIAGNOSTIC, N63.10, PAIN LT BREAST, N64.4. COMPARISON: US US BREAST RT LIMITED from 06/04/2023. Baseline examination. TECHNIQUE: Craniocaudal and mediolateral oblique Full Field Digital Mammography views of both breast s with Computer Aided Diagnosis followed by Tomosynthesis and right breast ultrasound. FINDINGS: Mammography/Tomosynthesis: Masses/Architectural Distortion: None seen. Microcalcifications: No suspicious pleomorphic-type are seen. Skin Thickening/Nipple Retraction: None. Right breast US: Echotexture: Normal appearance of the glandular tissue. Shadowing: No suspicious foci. Cyst: None. Solid lesions: None seen. Ductal dilation: None. IMPRESSION: 1. No evidence of malignancy is noted. 2. Unless there is more urgent need, follow-up screening mammography is recommended, as per [employer] [employer] guidelines. BI-RADS Category 1 - Negative Breast Density - Category A - Almost entirely fatty Breast density category C or D implies that the patient has dense breast tissue. Dense breast tissue is very common and is not abnormal but dense breast tissue can make it harder to find cancer on a ma mmogram. Also, dense breast tissue may increase their breast cancer risk. This information about the result of the mammogram report was provided to the patient to raise their awareness. Use this report when you speak with the patient about their risks for breast cancer, which includes their family hist ory. At that time, you may recommend for more screening tests (Ultrasound or MRI) as they might be us eful based on their risk. A negative radiographic report should not delay biopsy if a dominant or clinically suspicious mass is present. Up to ten percent of cancers are not identified on mammography. A negative report may reinforce clinical impression. Adenosis and dense breasts may obscure an underlying neoplasm. False positive reports average 6 to 10%. Patient will receive a letter notifying them of these results.
== END ==
PROVIDERS: PCP Nurse Practitioner Family; Visit Provider Nurse Practitioner Family
DX: N63.12 Unspecified lump in the right breast, upper inner quadrant (principal); Z12.31 Encounter for screening mammogram for malignant neoplasm of breast
CPT/HCPCS: 76642; 77062; 77066; G0279

== ENCOUNTER 2024-01-30 15:22 | Outpatient (REF) | payer OTHER, SELFPAY ==
--- NOTE | 2024-01-30 13:30 | SKI_PTH ---
PATIENT: Alda Luther LOC: [facility] U#:[id number] AGE/SX: 33/F ROOM: RE01/30/[address]: Lucina Andrews : 1990 BED: DIS: 01/30/2024 SPEC #: [id number] RECD: 01/30/24 17:37 STATUS: DEJON REPablo #: [id number] ESTHER: 01/30/24 13:[address]: Lucina Andrews DEPT: Surgical Specimen RECD BY: Vero Leigh Tissues: 1 - SKIN BIOPSY(SHAVE/PUNCH) Procedures: SKIN LEVEL 4 Comments: [id number]
--- OUTSIDE RECORDS SUMMARY | 2024-01-30 15:24 | XMS_ITS | Referral Summary ---
Author Organization [facility] Address [address] [place] [address] Care Team Providers Care Production Sorter Name Role Phone Unknown, Provider Primary Care Provider Social History Tobacco Use Types Packs/Day Years Used Date Smoking Tobacco: Never Assessed Interpersonal Safety Answer Date Record ed Physically Hurt Never 05/04/2020 Verbally Threaten Not on file 05/04/2020 Sex and Gender Information Value Date Recorded Sex Assigned at Not on file Gender Identity Not on file Sexual Orientation Not on file Plan of Treatment Not on file Care Teams Production Sorter Relationship Specialty Start Date End Date Unknown, Provider, PCP - General 07/22/21
--- OUTSIDE RECORDS SUMMARY | 2024-01-30 15:24 | XMS_ITS | Encounter Summary ---
Author Organization [facility] Address [address] [place] [address] Care Team Providers Care Chaperone Name Role Phone Unknown, Provider Primary Care Provider Encounter Details Date Type Department Care Team (Late st Contact Info) Description 08/19/2021 Lab Requisition [facility] Pathology & Laboratory Medicine - [facility] [address] [place], [place] [id number] Rubina Medellin MD [address] [place] [address] [address] [phone] Encounter for other general examination Social History Tobacco Use Types Packs/Day Years Used Date Smoking Tobacco: Never Assessed Interpersonal Safety Answer Date Record ed Physically Hurt Never 05/04/2020 Verbally Threaten Not on file 05/04/2020 Sex and Gender Information Value Date Recorded Sex Assigned at Not on file Gender Identity Not on file Sexual Orientation Not on file documented as of this encounter Plan of Treatment Not on file documented as of this encounter Procedures Procedure Name Priority Date/Time Associated Diagnosis Comments SURGICAL PATHOLOGY Today 08/18/2021 13 :48 EDT Encounter for other general examination documented in this encounter Results * SURGICAL PATHOLOGY (08/18/2021 13:48 EDT) Note to Patient The following pathology results have been interpreted by your pathologist and may be available to you before your health provider has had the opportunity to review them. Please allow time for your provider to receive these results and explore management options, if applicable. 08/22/2021 16:[address] [facility] Final Diagnosis A. UTERUS, CERVIX, AND FALLOPIAN TUBES, HYSTERECTOMY AND BILATERAL SALPINGECTOMY: - Endometrium: -Proliferative. - Myometrium: -No specific pathologic features. - Cervix: -No specific pathologic features. - Serosa: -No specific pathologic features. - Fallopian tubes, bilateral: -Paratubal cyst, otherwise no specific pathologic features. 08/22/2021 16:39 [facility] Attestation By the signature below, the attending physician certifies that they have 1) personally conducted a gross and/or microscopic examination of the described specimen(s), and/or personally interpreted the results of laboratory testing of the described specimen(s), and 2) personally rendered or confirmed the above diagnosis. 08/22/2021 16:39 [facility] at 1639 Clinical History Dysmenorrhea, menorrhagia with regular cycle 08/22/2021 16:39 [facility] Gross Description A. Received in formalin labelled with proper patient identification (initials S, J) and uterus, fallopian tubes (nitish) cervix is an intact uterus and cervix (106.0 g, 9.1 cm cervix to fundus x 5.0 cm cornu to cornu x 4.3 cm anterior to posterior) with attached right fallopian tube (8.0 cm in length by 0.5 cm in diameter) and left fallopian tube (6.4 cm in length by 0.6 cm in diameter). The uterine serosa is salazar-brown to purple and smooth. The endometrium is pink-purple, soft and shaggy and has a thickness of 0.3 cm. The myometrium is salazar-pink and mildly trabecular and ranges from 1.8 cm to 2.3 cm in thickness. The ectocervix is salazar-dexter smooth and wrinkled, and the endocervix is salazar-brown with a slightly furrowed, partial herringbone pattern. The right and left fallopian tubes have a purple-blue smooth serosa and sectioning reveals a hemorrhagic cut surface and a pinpoint lumen throughout. On the distal left fallopian tube there is an attached thin walled paratubal cyst 2.4 cm in greatest dimension filled with clear yellow serous fluid. The cyst has a smooth inner lining that is without excrescences. Transportation Department Supervisor sections are submitted as follows: BLOCK LEMUS A1- anterior cervix A2- posterior cervix A3-A4- anterior endomyometrium A5-A6- posterior endomyometrium A7-A8- right fallopian tube fimbria A9- right fallopian tube lumen cross-sections A10-A11- left fallopian tube fimbria A12- left fallopian tube in cross-sections A13- left paratubal cyst ANDRES COON(ASCP) 08/19/2021 13:33 08/22/2021 16:[address] [facility] Performing Lab [facility] 08/22/2021 16:[address] [facility] Scanned Images 08/22/2021 16:[address] [facility] Tissue SPECIMEN FROM UTERUS / Unknown 08/18/2021 13:48 EDT 08/19/2021 10:44 EDT Rubina Medlelin MD PATHOLOGY ORDERABLES Performing Organization Address City/State/[facility] Co de Phone Number [facility] [address] [place] [address] documented in this encounter Visit Diagnoses Diagnosis Encounter for other general examination documented in this encounter Care Teams Chaperone Relationship Specialty Start Date End Date Unknown, Provider, PCP - General 07/22/21 documented as of this encounter
--- OUTSIDE RECORDS SUMMARY | 2024-01-30 15:24 | XMS_ITS | Encounter Summary ---
Author Organization [facility] Address [address] [place] [address] Care Team Providers Care Abalone Sheller Name Role Phone Unknown, Provider Primary Care Provider Encounter Details Date Type Department Care Team (Late st Contact Info) Description 08/18/2020 Lab Requisition [facility] Pathology & Laboratory Medicine - [facility] [address] [place], [place] [id number] Outr Resulting Lab, Provider Social History Tobacco Use Types Packs/Day [...] Procedure Name Priority Date/Time Associated Diagnosis Comments CHLAMYDIA/N. GONORRHOEAE AMPLIFIED NUCLEIC ACID, THINPREP Routine 08/17/2020 16:15 EDT documented in this encounter Results * CHLAMYDIA/N. GONORRHOEAE AMPLIFIED RNA, THINPREP (08/17/2020 16:15 EDT) Neisseria gonorrhoeae Result Negative Negative 08/19/2020 15:05 EDT [facility] Chlamydia trachomatis Result Negative Negative 08/19/2020 15:05 EDT [facility] Papanicolaou smear specimen (specimen) CERVIX UTERI STRUCTURE / Unknown 08/17/2020 16:15 EDT 08/19/2020 7:52 EDT Provider Outr Resulting Lab MICROBIOLOGY - GENERAL ORDERABLES [facility] [address] [place] [address] documented in this encounter Visit Diagnoses Not on filedocumented in this encounter Care Teams Abalone Sheller Relationship Specialty Start Date End Date Unknown, Provider, PCP - General 07/22/21 documented as of this encounter
--- OUTSIDE RECORDS SUMMARY | 2024-01-30 15:24 | XMS_ITS | Clinical Summary ---
Author Organization [facility] Address [address] [place] [address] Care Team Providers Care Data Processing Mechanic Name Role Phone Unknown, Provider Primary Care Provider Social History Tobacco Use Types Packs/Day Years Used Date Smoking Tobacco: Never Assessed Interpersonal Safety Answer Date Record ed Physically Hurt Never 05/04/2020 Verbally Threaten Not on file 05/04/2020 Sex and Gender Information Value Date Recorded Sex Assigned at Not on file Gender Identity Not on file Sexual Orientation Not on file Plan of Treatment Health Maintenance Due Date Last Done Comments Hepatitis C Screen 1990 Hepatitis B Vaccine (1 of 3 - 19+ 3-dose series) 12/13 COVID-19 Vaccine ( season) 2022 Care Teams Data Processing Mechanic Relationship Specialty Start Date End Date Unknown, Provider, PCP - General 07/22/21
--- OUTSIDE RECORDS SUMMARY | 2024-01-30 15:24 | XMS_ITS | Encounter Summary ---
Author Organization [facility] Address [address] [place] [address] Care Team Providers Care Calculus Teacher Name Role Phone Unknown, Provider Primary Care Provider Encounter Details Date Type Department Care Team (Late st Contact Info) Description 05/03/2020 Lab Requisition [facility] Pathology & Laboratory Medicine - [facility] [address] [place], [place] [address] Outr Resulting Lab, Provider Social History Tobacco [...] Procedure Name Priority Date/Time Associated Diagnosis Comments ZZCOVID-19 TEST [facility] PCR Today 05/03/2020 9:31 EST COVID-19 TESTING Routine 05/03/2020 9:31 EST documented in this encounter Results * COVID-19 TEST [facility] PCR (05/03/2020 9:31 EST) Swab ENTIRE NASOPHARYNX / Unknown 05/03/2020 9:31 EST 05/03/2020 15:43 EST Provider Outr Resulting Lab MICROBIOLOGY - GENERAL ORDERABLES [facility] [address] [place] [address] * COVID-19 TESTING (05/03/2020 9:31 EST) COVID-19 rt-PCR Result Negative Negative 05/04/2020 13:15 EST [facility] Comment: This test has not been FDA cleared or approved. This test has been authorized by FDA under an EUA for use by authorized laboratories. This test has been authorized only for detection of nucleic acid from 2019-nCoV, not for any other viruses or pathogens. This test is only authorized for the duration of the declaration that circumstances exist justifying the authorization of emergency use of in vitro diagnostic tests for detection and/or diagnosis of 2019-nCoV under section 564(b)(1) of Act, 21 U.S.C ?? 360bbb-3(b) (1), unless the authorization is terminated or revoked sooner. Negative results do not preclude 2019-nCoV infection and should not be used as the sole basis for treatment or other patient management decisions. Negative results must be combined with clinical observations, patient history, and epidemiological information. Testing was performed using the jessica SARS-CoV-2 assay ([employer] on the Jessica 6800 System Performing Lab Jessica [address] [facility] 05/04/2020 13:15 EST [facility] Swab 05/03/2020 9:31 EST 05/03/2020 15:43 EST Provider Outr Resulting Lab MICROBIOLOGY - GENERAL ORDERABLES [facility] [address] [place] [address] documented in this encounter Visit Diagnoses Not on filedocumented in this encounter Care Teams Calculus Teacher Relationship Specialty Start Date End Date Unknown, Provider, PCP - General 07/22/21 documented as of this encounter
--- OUTSIDE RECORDS SUMMARY | 2024-01-30 15:24 | XMS_ITS | Encounter Summary ---
Author Organization [facility] Address [address] [place] [address] Care Team Providers Care Agricultural Service Worker Name Role Phone Unknown, Provider Primary Care Provider Encounter Details Date Type Department Care Team (Latest Contact Info) Description 08/19/2020 Lab Requisition [facility] Pathology & Laboratory Medicine - [facility] [address] [place] [address] Lucina Andrews FNP [address] [facility] [address] [place] [phone] Encounter for general adult medical examination without abnormal findings; Encounter for screening for malignant neoplasm of cervix; Encounter for gynecological examination (general) (routine) without abnormal findings Social History Tobacco Use Types Packs/Day Years [...] Procedure Name Priority Date/Time Associated Diagnosis Comments PAP TEST Today 08/17/2020 16:15 EDT Encounter for general adult medical examination without abnormal findings Encounter for screening for malignant neoplasm of cervix Encounter for gynecological examination (general) (routine) without abnormal findings documented in this encounter Results * PAP TEST (08/17/2020 16:15 EDT) Specimens A. Cervix and/or Endocervix , ThinPrep Imaging System with Manual Evaluation 08/23/2020 10:59 EDT [facility] Specimen Adequacy Satisfactory for Evaluation - transformation zone component present 08/23/2020 10:59 EDT [facility] General Categorization Negative for intraepithelial lesion or malignancy 08/23/2020 10:59 EDT [facility] Attestation . 08/23/2020 10:59 EDT [facility] at 1059 Clinical History See below 08/24/19 10:59 EDT [facility] Performing Lab [facility] 08/23/2020 10:59 EDT [facility] Scanned Images 08/23/2020 10:59 EDT [facility] Papanicolaou smear specimen (specimen) CERVIX UTERI STRUCTURE / Unknown 08/17/2020 16:15 EDT 08/19/2020 10:40 EDT Lucina Andrews TOOL SUPERVISOR PATHOLOGY ORDERABLES Performing Organization Address City/State/[facility] Co de Phone Number [facility] [address] [place] [address] documented in this encounter Visit Diagnoses Diagnosis Encounter for general adult medical examination without abnormal findings Unspecified general medical examination Encounter for screening for malignant neoplasm of cervix Screening for malignant neoplasm of the cervix Encounter for gynecological examination (general) (routine) without abnormal findings documented in this encounter Care Teams Agricultural Service Worker Relationship Specialty Start Date End Date Unknown, Provider, PCP - General 07/22/21 documented as of this encounter
== END 2024-01-30 15:23 | disposition home or self-care (01) ==
LOC: NCHCN 15:22
PROVIDERS: PCP Nurse Practitioner Family; Visit Provider Nurse Practitioner Family
DX: D03.59 Melanoma in situ of other part of trunk (principal)
CPT/HCPCS: 88305

== ENCOUNTER 2024-03-26 09:03 | Outpatient (CLI) | payer OTHER, SELFPAY ==
--- NOTE | 2024-03-26 08:45 | DI.RAD_ITS ---
Exam(s) XR CHEST 2V PA LATERAL EXAM: XR CHEST 2V PA LATERAL CLINICAL HISTORY: R05.9 Cough, persistant TECHNIQUE: 2D digital imaging was performed. Two views. COMPARISON: No exams were available for comparison FINDINGS: HEART: Normal size. Aorta: Not dilated. PULMONARY VASCULATURE: Normal. MEDIASTINUM: Unremarkable. LUNGS: Clear. PLEURAL SPACE: No pleural effusion or pneumothorax. BONE:Unremarkable for age. SOFT TISSUES: Unremarkable. IMPRESSION: No acute abnormality. DATA REPOSITORY: RADIATION DOSE DELIVERED:
== END 2024-03-26 09:23 ==
LOC: DI 09:03
PROVIDERS: PCP Nurse Practitioner Family; Visit Provider Physician Assistant
DX: R05.9 Cough, unspecified (principal)
CPT/HCPCS: 71046

== ENCOUNTER 2024-11-06 21:05 | Outpatient (REF) | payer OTHER, SELFPAY ==
[2024-11-06 21:41] LABS: HCT 38.0 % (36.0-46.0); HGB 12.7 g/dL (11.2-15.7); MCH 29.3 pg (27.0-33.0); MCHC 33.4 % (32.0-36.0); MCV 88 fL (80-95); MPV 9.9 fL (8.0-11.0); Platelet Count 350 10^3/uL (130-400); RBC 4.33 10^6/uL (3.93-5.22); RDW 12.4 % (11.7-14.6); RDW-SD 39.8 fL; WBC 9.54 10^3/uL (4.4-10.8)
[2024-11-06 22:13] LABS: Iron 67 ug/dL (50-170); Total Iron Binding Capacity 272 ug/dL (250-450)
[2024-11-06 22:19] LABS: ALT 25 U/L (14-59); AST 16 U/L (15-37); Albumin 3.6 g/dL (3.4-5.0); Alkaline Phosphatase 81 U/L (46-116); Anion Gap 10.4 mmol/L (3-11); BUN 12 mg/dL (7-18); Bilirubin, Total 0.3 mg/dL (0.2-1.0); CO2 24.6 mmol/L (21.0-32.0); Calcium 9.0 mg/dL (8.5-10.1); Chloride 104 mmol/L (98-107); Estimated GFR 100.96 (mL/min/1.73m2); Glucose 78 mg/dL (74-106); Potassium 4.1 mmol/L (3.5-5.1); Sodium 139 mmol/L (136-145); TSH (W/Ref FT4) 1.46 uIU/mL (0.36-3.74); Total Protein 7.0 g/dL (6.4-8.2)
[2024-11-14 19:39] LABS: Testosterone, Free 1.9 pg/mL (0.1-6.4)
== END 2024-11-06 21:06 | disposition home or self-care (01) ==
LOC: NCHCN 21:05
PROVIDERS: PCP Nurse Practitioner Family; Visit Provider Nurse Practitioner Family
DX: L65.9 Nonscarring hair loss, unspecified (principal)
CPT/HCPCS: 80053; 84402; 84403; 85027; 83540; 83550; 84443